=== PATIENT | female | born 1935 | race American Indian/Alaskan Native ===

== ENCOUNTER → 2018-09-11 | Outpatient (CLI) | payer MEDICARE, BC ==
[~2018-09-11] MED LIST: Iopamidol 612 MG/ML 50 ML SDV IVPUSH ONE; Lidocaine 1% 30 ML SDV INJECT ONE; methylPREDNISolone Acetate 40 MG/ML SDV INJECT ONE
--- NOTE | 2018-09-11 12:36 | CR ---
Clinical history: 83-year-old female with severe right hip pain (some relief hip injection April 2018) who is "not surgical candidate for orthopedic hip replacement". Scan technique: Patient counseled regarding this procedure and attendant risks including infection, pain, bleeding and contrast reaction. Employing sterile technique, 1% Xylocaine skin anesthesia, fluoroscopic guidance and 22-gauge skinny needle a total of 3 cc 1% Xylocaine pus 40 mg Depo-Medrol was introduced on third needle pass into the right hip joint (technically more difficult exam and mixed injection compared to 11 May. Capsule adhesions?). Patient tolerated the procedure extremely well and left the department in stable condition with instructions to observe and record (daily calendar) postinjection symptomatology right hip.
== END ==
LOC: DL.DI 09:42
PROVIDERS: ATTEND Nurse Practitioner
DX: M25.551 Pain in right hip (principal)
CPT/HCPCS: 20610; 77002; J1030; J2001; Q9967